=== PATIENT | female | born 1955 | race Caucasian/White ===

== ENCOUNTER → 2019-07-04 08:49 | Outpatient (BNVA) | payer MEDICAID, SELFPAY | PROVIDERS: Family Provider Family Medicine; PCP Family Medicine; Visit Provider Otolaryngology | DX: H91.90 Unspecified hearing loss, unspecified ear (principal); H93.19 Tinnitus, unspecified ear | CPT/HCPCS: 99213; 99214 ==

== ENCOUNTER → 2019-07-12 08:40 | Outpatient (BNVA) | payer MEDICAID, SELFPAY | PROVIDERS: Family Provider Family Medicine; PCP Family Medicine; Visit Provider Specialist | DX: G43.711 Chronic migraine without aura, intractable, with status migrainosus (principal) | CPT/HCPCS: 64615; J0585 ==

== ENCOUNTER → 2019-10-18 08:14 | Outpatient (BNVA) | payer MEDICAID, SELFPAY | PROVIDERS: Family Provider Family Medicine; PCP Family Medicine; Visit Provider Specialist | DX: G43.711 Chronic migraine without aura, intractable, with status migrainosus (principal) | CPT/HCPCS: 64615; J0585 ==

== ENCOUNTER 2019-11-08 09:16 | Outpatient (CLI) | payer MEDICAID, SELFPAY ==
--- NOTE | 2019-11-08 09:34 | MM_ITS ---
WS: [id number] BILATERAL DIGITAL DIAGNOSTIC MAMMOGRAM MAMMOGRAPHY WITH CAD CLINICAL INFORMATION: HX OF BREAST CA LEFT BREAST RADIATION. HISTORY OF MASTITIS WITH 6 NODES REMOVED . COMPARISON: November 06, 2018 TECHNIQUE: Bilateral CC, MLO, and ML views. FINDINGS: Scattered fibroglandular densities bilaterally. No suspicious focal mass, asymmetry, calcifications, or architectural distortion. No evidence of marlon gnancy. Benign punctate calcifications right breast. Postoperative changes with volume loss in the up per outer left breast. Coarse calcification along the axillary tail unchanged. MM/[id number] IMPRESSION: BI-RADS: 2-Benign FOLLOW UP: 1 Year Follow-up Recommend return to annual diagnostic mammography.
== END 2019-11-08 09:17 | disposition home or self-care (01) ==
LOC: RADSHAW 09:19
PROVIDERS: PCP Family Medicine; Visit Provider Internal Medicine Medical Oncology
DX: Z85.3 Personal history of malignant neoplasm of breast (principal)
CPT/HCPCS: 77066

== ENCOUNTER 2019-11-22 09:07 | Outpatient (CLI) | payer MEDICAID, SELFPAY ==
--- NOTE | 2019-11-23 06:43 | ONC FU_ITS ---
Dr. Coles Patient Follow-Up Note Patient: Phuong Khan Unit #: [id number]: 1955 Dicatated By: Jack Coles M.D.Date of Visit:November 22, 2019 Onc Med Follow-up/Prog Note Chief Complaint: Breast cancer. History of Present Illness: This is a 64 year-old woman with grade 1 infiltrating ductal carcinoma of the left breast, stage IA (T1c, N0, M0), ER/GA positive and HER-2/vanessa negative. She palpated a left breast nodule about 1 week prior to presentation. On 08/01/2012 her left breast mammogram showed a 14 mm lesion at 2 o'clock position, corresponding to 2.7 cm lesion on ultrasound. On 09/01/2012 she underwent an excisional biopsy. Her pathology showed 1.6 cm grade 1 multifocal infiltrating ductal carcinoma with a significant component of DCIS. Anterior margins were at 5 mm from invasive focus. DCIS was present within 5 mm of posterior margins. Prognostic markers revealed ER 94%, GA 95%, HER-2/vanessa was without over expression or over amplification, however no quantification was provided in the report. On 09/14/2012 she underwent a low axillary dissection, that showed 6 uninvolved lymph nodes. Her Oncotype DX score returned at 9, low risk, corresponding to a 6% chance of distant recurrence following completion of her hormonal treatment. Adjuvant chemotherapy was not recommended. She was referred for radiation therapy. Unfortunately, her treatment was delayed due to multiple complications. She developed postoperative mastitis, followed by by shingles flare, and staph infection of her left breast. She eventually recovered and underwent a 59.4 Gy of adjuvant radiation treatment, completed on 01/17/2013. Adjuvant hormonal therapy with anastrozole began in January 2013. The DEXA scan on 11/04/12 showed osteopenia with a T score of -1.3, treated with calcium and vitamin D supplementation. Bone scan on 05/18/13 was negative. Repeat DEXA scan on 11/07/2013 showed some improvement in osteopenia, T score -1.1 in lumbar spine. Her medical history includes a CVA in 2010, leaving her with a residual memory problems and difficulty with concentration, but no focal neurological deficits. Her other medical illnesses include hypertension, hyperlipidemia, GERD, and chronic migraine. She also has a history of SVT, and she has some chronic anxiety. She is a nonsmoker. INTERIM HISTORY: A repeat DEXA scan on 04/05/2017 showed osteopenia with T score in the lumbar spine of -2.0 compared to -1.1 in October 2013. She began on Prolia in April 2017. She continued adjuvant hormonal therapy with anastrozole 1 mg daily. As of her follow-up visit in April 2018 she opted to stop the anastrozole, as she had completed 5 years of adjuvant hormonal therapy. She is seen for a scheduled visit. She has been feeling good generally. Her energy has been good, and she has normal activity. Appetite also is good. Her weight is down 5-6 pounds. She does not have fever, night sweats, or hot flashes. ECOG score 0. She has no shortness of breath, cough, or chest pain. She has no GI or complaints. She has no significant joint or bone pain. She still has migraine headaches occasionally. They are pretty well managed with Botox. She has no focal neurologic symptoms. Medications: ALPRAZolam 1 (1 mg) Tablet Oral daily PRN, Aspirin 1 (325 mg) Tablet Oral daily, Atenolol 1 (25 mg) Tablet Oral daily, Botox Injection, Calcium 600+D 1 (1200-800 mg - Units) Tablet Oral b.i.d., Fish Oil Capsule Oral daily, PriLOSEC 1 (20 mg) Pack Oral daily, Spironolactone 1 (25 mg) Tablet Oral daily, Vitamin B12 Tablet Oral Allergies: hydrocodone and Morphine Sulfate. Review of Systems: Constitutional - She is generally feeling good. Her energy is good and she mostly has normal activity. Her appetite is good and weight is stable. No fever, chills, hot flashes, or night sweats. ECOG score is 0, ENMT - She is having some sinus drainage. No mouth sores. No sore throat or difficulty swallowing, Hematologic/Lymphatic - No abnormal bruising or bleeding, Respiratory - No shortness of breath. No cough. No pleuritic pain or hemoptysis, Cardiovascular - No angina pain. No palpitations, Gastrointestinal - No nausea or vomiting. Her heartburn is well controlled with Prilosec. No diarrhea or constipation. No blood in the stool or black stools, Genitourinary (F) - No dysuria or hematuria. No urinary frequency. No urgency or incontinence, Musculoskeletal - No joint or bone pain, Integumentary - No skin complications, Neurologic - She has chronic migraines that are managed with Botox. She has occasional dizziness. No numbness/paresthesias or other focal neurologic symptoms, Psychiatric - No anxiety or depression. No insomnia. Vital Signs: Performed on November 22, 2019 09:18 Height - 64.00 in Weight - 163.8 lbs (LOW) BSA - 1.80 sq.m BMI - 28.12 Temperature - 98.2 F (LOW) Pulse - 62 /min Respiration - 18 /min BP - 139/72 mm(hg) O2 Sat - 97 % Pain - 0 Physical Examination: Constitutional - She looks good generally, Eyes - Sclerae nonicteric. Conjunctivae clear, ENMT - No lesions noted in the oral cavity, Hematologic/Lymphatic - No cervical or clavicular adenopathy, Respiratory - Lungs are clear with good air movement bilaterally, Cardiovascular - Heart rhythm is regular. There is no murmur, gallop, or rub noted, Breasts - There are no breast masses noted. There is no axillary adenopathy, Abdomen - Soft. Liver and spleen are not enlarged. There is no abdominal mass or ascites noted and there is no inguinal adenopathy, Extremities - No edema. Dorsalis pedis pulses are palpable bilaterally, Neurologic - No focal neurologic deficits noted. Impression: 1. Patient with grade 1 infiltrating ductal carcinoma of the left breast, stage IA (T1c, N0, M0), ER/GA positive and HER-2/vanessa negative. She was low risk by Oncotype DX, recurrence score 9. 2. She underwent excisional biopsy on 09/01/2012 followed by low axillary dissection on 09/14/2012. 3. She completed radiation to the left breast on 01/17/2013 20 total dose of 5940 cGy. 4. She began adjuvant hormonal therapy with anastozole 1 mg daily in January 2013. Her other medical illnesses include: 5. Hypertension. 6. Hyperlipidemia. 7. GERD. 8. Chronic migraine. 9. She suffered a stroke in 2010 with residual cognitive dysfunction but no neurologic deficit. 10. She has a history of SVT. 11. She has some chronic anxiety. During followup there was a decline in her bone density, and in April 2017 she did start treatment with Prolia. As of her followup visit in April 2018 she opted to stop the anastrozole, as she had completed 5 years of adjuvant hormonal therapy. She has since then followed on observation/expectant management. She is doing very well clinically with no evidence of recurrence of the breast cancer. Plan: She remains on observation/expectant management. She will continue her regular follow-up with Dr. Elizondo. She will be due for her yearly diagnostic mammograms in June. I will see her again in one year. Signed By: Jack Coles M.D. <<Signature on File>>
== END 2019-11-22 09:08 | disposition home or self-care (01) ==
LOC: ONCMED 09:09
PROVIDERS: PCP Family Medicine; Visit Provider Internal Medicine Medical Oncology
DX: Z08 Encounter for follow-up examination after completed treatment for malignant neoplasm (principal); Z85.3 Personal history of malignant neoplasm of breast; Z92.23 Personal history of estrogen therapy; I10 Essential (primary) hypertension; E78.5 Hyperlipidemia, unspecified; K21.9 Gastro-esophageal reflux disease without esophagitis; G43.709 Chronic migraine without aura, not intractable, without status migrainosus; I69.319 Unspecified symptoms and signs involving cognitive functions following cerebral infarction; F41.9 Anxiety disorder, unspecified; Z86.79 Personal history of other diseases of the circulatory system
CPT/HCPCS: G0463

== ENCOUNTER 2019-11-26 15:52 | Outpatient (CLI) | payer MEDICAID, SELFPAY ==
--- NOTE | 2019-11-26 15:57 | XR_ITS ---
WS: [id number] DEXA (DUAL ENERGY X-RAY ABSORPTIOMETRY) Bone mineral density was performed using a [employer] machine. HISTORY: POST MENOPAUSAL COMPARISON: 04/05/2017 Lumbar spine BMD (L1-L4): 0.954 g/cm2 T score: -1.9 Z score: -0.6 Total hip BMD: Left: 0.896 g/cm2. T score: -0.9 Z score: 0.1 Right: 0.877 g/cm2. T score: -1.0 Z score: -0.1 10 year probability of a major osteoporotic fracture is 18%. Compared to the prior study from 04/05/2017. Lumbar spine bone mineral density has increased by 2.0%. Bilateral hips bone mineral density has decreased by 4.3%. XR/XR DEXA axial skeleton* [id number] IMPRESSION: OSTEOPENIA based upon the WHO classification for females. Significant increase in bone mineral density within the lumbar spine but signif icant decrease of bone mineral density involving the hips. Changes since 2016.
== END 2019-11-26 15:53 | disposition home or self-care (01) ==
LOC: RADWPI 15:55
PROVIDERS: PCP Family Medicine; Visit Provider Family Medicine
DX: Z78.0 Asymptomatic menopausal state (principal); M85.89 Other specified disorders of bone density and structure, multiple sites
CPT/HCPCS: 77080

== ENCOUNTER → 2020-01-10 08:05 | Outpatient (BNVA) | payer MEDICAID, SELFPAY | PROVIDERS: Family Provider Family Medicine; PCP Family Medicine; Visit Provider Specialist | DX: G43.711 Chronic migraine without aura, intractable, with status migrainosus (principal); F41.8 Other specified anxiety disorders | CPT/HCPCS: 64615; 99213; J0585 ==

== ENCOUNTER → 2020-04-03 07:56 | Outpatient (BNVA) | payer MEDICAID, SELFPAY | PROVIDERS: Family Provider Family Medicine; PCP Family Medicine; Visit Provider Specialist | DX: G43.711 Chronic migraine without aura, intractable, with status migrainosus (principal) | CPT/HCPCS: 64615; J0585 ==

== ENCOUNTER → 2020-07-03 08:01 | Outpatient (BNVA) | payer MEDICAID, SELFPAY | PROVIDERS: Family Provider Family Medicine; PCP Family Medicine; Visit Provider Specialist | DX: G43.711 Chronic migraine without aura, intractable, with status migrainosus (principal) | CPT/HCPCS: 64615; J0585 ==

== ENCOUNTER → 2020-09-25 08:07 | Outpatient (BNVA) | payer MEDICAID, SELFPAY | PROVIDERS: Family Provider Family Medicine; PCP Family Medicine; Visit Provider Specialist | DX: G43.709 Chronic migraine without aura, not intractable, without status migrainosus (principal) | CPT/HCPCS: 64615; J0585 ==

== ENCOUNTER 2020-11-10 10:35 | Outpatient (CLI) | payer MEDICAID, SELFPAY ==
--- NOTE | 2020-11-10 10:39 | MM_ITS ---
WS: [id number] BILATERAL DIAGNOSTIC DIGITAL MAMMOGRAM WITH CAD HISTORY: HX OF BREAST CA COMPARISON: 11/08/2019 and 11/06/2018 Bilateral CC and MLO views submitted. Computer aided detection analyzed. Breast composition: There are scattered areas of fibroglandular density. No suspicious masses, microc alcifications or architectural distortion. Loss in the LEFT breast from prior surgery. Dystrophic calcification in the superior LEFT breast is s table. Benign calcifications in the RIGHT breast. No suspicious findings or change. MM/[id number] IMPRESSION: BI-RADS: 2-Benign FOLLOW UP: 1 Year Follow-up
== END 2020-11-10 10:36 | disposition home or self-care (01) ==
PROVIDERS: Family Provider Family Medicine; PCP Family Medicine; Visit Provider Internal Medicine Medical Oncology
DX: Z85.3 Personal history of malignant neoplasm of breast (principal)
CPT/HCPCS: 77066

== ENCOUNTER → 2020-12-18 07:57 | Outpatient (BNVA) | payer MEDICAID, SELFPAY | PROVIDERS: Family Provider Family Medicine; PCP Family Medicine; Visit Provider Specialist | DX: G43.709 Chronic migraine without aura, not intractable, without status migrainosus (principal) | CPT/HCPCS: 64615; J0585 ==

== ENCOUNTER → 2021-04-02 08:07 | Outpatient (BNVA) | payer MEDICARE, MEDICAID, SELFPAY | PROVIDERS: Family Provider Family Medicine; PCP Family Medicine; Visit Provider Specialist | DX: G43.711 Chronic migraine without aura, intractable, with status migrainosus (principal) | CPT/HCPCS: 64615; J0585 ==

== ENCOUNTER → 2021-07-02 08:01 | Outpatient (BNVA) | payer MEDICARE, MEDICAID, SELFPAY | PROVIDERS: Family Provider Family Medicine; PCP Family Medicine; Visit Provider Specialist | DX: G43.711 Chronic migraine without aura, intractable, with status migrainosus (principal) | CPT/HCPCS: 64615; J0585 ==

== ENCOUNTER → 2021-09-24 08:17 | Outpatient (BNVA) | payer MEDICARE, SELFPAY | PROVIDERS: Family Provider Family Medicine; PCP Family Medicine; Visit Provider Specialist | DX: G43.711 Chronic migraine without aura, intractable, with status migrainosus (principal) | CPT/HCPCS: 64615; J0585 ==

== ENCOUNTER 2021-11-30 09:20 | Outpatient (CLI) | payer MEDICARE, MEDICAID, SELFPAY ==
--- NOTE | 2021-11-30 09:31 | MM_ITS ---
WS: [id number] VIEWS: MLO, CC, and ML views both breasts. 3D digital tomosynthesis is also included in this exam. Comparison made with prior exam of 10/17/2015, 10/19/2016, 11/06/2018, 11/10/2020.. Findings: There was no sign of mass, architectural distortion or suspicious calcification in either breast. Sta ble appearing architectural distortion and dystrophic calcification in the left breast. Fatty MM/[place] [id number] Impression: BI-RADS: 2-Benign FOLLOW-UP: 1 Year Follow-up This mammogram was also analyzed by the Computer Aided Detection System R2 Imag e [employer] Functional Analyst.
== END 2021-11-30 09:21 | disposition home or self-care (01) ==
PROVIDERS: Family Provider Family Medicine; PCP Family Medicine; Visit Provider Internal Medicine Medical Oncology
DX: Z85.3 Personal history of malignant neoplasm of breast (principal)
CPT/HCPCS: 77062

== ENCOUNTER → 2021-12-17 08:07 | Outpatient (BNVA) | payer MEDICARE, SELFPAY | PROVIDERS: Family Provider Family Medicine; PCP Family Medicine; Visit Provider Specialist | DX: G43.711 Chronic migraine without aura, intractable, with status migrainosus (principal) | CPT/HCPCS: 64615; J0585 ==

== ENCOUNTER 2022-01-14 14:05 | Outpatient (CLI) | payer MEDICARE, SELFPAY ==
--- NOTE | 2022-01-14 14:27 | XR_ITS ---
WS: [id number] SCREENING DEXA SCAN [employer] CLINICAL INFORMATION: POSTMENOPAUSAL COMPARISON: November 26, 2019 FINDINGS: The L1-L4 bone mineral density measures 1.013 g/cm2. This corresponds to a T score score of -1.4 and Z score of -0.4. Left femoral neck bone mineral density measures 0.938 g/cm2. This corresponds to a T score of -0.6 an d Z score of 0.3. Right femoral neck bone mineral density measures 0.924 g/cm2. This corresponds to a T score -0.7of an d Z score of 0.2. Mean femoral neck bone mineral density measures 0.931 g/cm2. This corresponds to a T score of -0.6 an d Z score of 0.2. XR/XR DEXA axial skeleton* [id number] IMPRESSION: Osteopenia in the lumbar spine. Normal bone mineral density in the femoral neck s. Patient's FRAX calculated 10 year probability for major osteoporotic fracture i s 15.6 % and osteoporotic hip fracture is 1.7%.
== END 2022-01-14 14:06 | disposition home or self-care (01) ==
LOC: RAD 14:06
PROVIDERS: PCP Family Medicine; Visit Provider Family Medicine
DX: Z78.0 Asymptomatic menopausal state (principal); M85.88 Other specified disorders of bone density and structure, other site
CPT/HCPCS: 77080

== ENCOUNTER → 2022-03-11 07:57 | Outpatient (BNVA) | payer MEDICARE, SELFPAY | PROVIDERS: PCP Family Medicine; Visit Provider Specialist | DX: G43.711 Chronic migraine without aura, intractable, with status migrainosus (principal) | CPT/HCPCS: 64615; J0585 ==

== ENCOUNTER → 2022-06-03 08:00 | Outpatient (BNVA) | payer MEDICARE, MEDICAID, SELFPAY | PROVIDERS: PCP Family Medicine; Visit Provider Specialist | DX: G43.711 Chronic migraine without aura, intractable, with status migrainosus (principal) | CPT/HCPCS: 64615; 95911; J0585 ==

== ENCOUNTER → 2022-08-26 08:00 | Outpatient (BNVA) | payer MEDICARE, MEDICAID, SELFPAY | PROVIDERS: PCP Family Medicine; Visit Provider Specialist | DX: G43.711 Chronic migraine without aura, intractable, with status migrainosus (principal) | CPT/HCPCS: 64615; J0585 ==

== ENCOUNTER → 2022-12-23 14:33 | Outpatient (BNVA) | payer MEDICARE, MEDICAID, SELFPAY | PROVIDERS: PCP Family Medicine; Visit Provider Specialist | DX: G43.711 Chronic migraine without aura, intractable, with status migrainosus (principal) | CPT/HCPCS: 64615; J0585 ==

== ENCOUNTER 2023-02-10 15:08 | Outpatient (CLI) | payer MEDICARE, MEDICAID, SELFPAY ==
--- NOTE | 2023-02-10 15:17 | USCV_ITS ---
Phuong Khan Age: 67 Gender: F : 1955 Exam Date: 02/10/2023 15:45 Ordering Phys: Shivam Elizondo MD Technologist: Fredrick Heller Exam Location: [facility] [place] Indication: hx of cva BP: 120 / 70 HR: 65 Rhythm: Sinus Technical Quality: Adequate MEASUREMENTS (Male / Female) Normal Values 2D ECHO LV Diastolic Diameter PLAX 4.4 cm 4.2 - 5.9 / 3.9 - 5.3 cm LV Systolic Diameter PLAX 2.5 cm IVS Diastolic Thickness 1.1 cm 0.6 - 1.0 / 0.6 - 0.9 cm IVS Systolic Thickness 1.6 cm LVPW Diastolic Thickness 1.1 cm 0.6 - 1.0 / 0.6 - 0.9 cm LVPW Systolic Thickness 1.3 cm LVOT Diameter 2.0 cm LV Ejection Fraction 2D Teich 74.5 % LV Ejection Fraction MOD 2C 74.2 % LV Ejection Fraction 2C AL 74.3 % LA Diameter 3.8 cm IVC Diameter 1.3 cm DOPPLER AV Peak Velocity 135.0 cm/s LVOT Peak Velocity 111.0 cm/s AV Area Cont Eq vti 2.3 cm squared AV Area Cont Eq pk 2.5 cm squared MV Area PHT 5.0 cm squared Mitral E to A Ratio 1.0 MV E' Velocity 45.0 cm/s Mitral E to MV E' Ratio 9.6 Mitral E to LV E' Lateral Ratio 7.6 Mitral E to LV E' Septal Ratio 13.1 TR Peak Velocity 113.7 cm/s TR Peak Gradient 5.2 mmHg TV Peak E Velocity 85.0 cm/s Right Atrial Pressure 3.0 mmHg Pulmonary Artery Systolic Pressu 8.2 mmHg RV Acceleration Time 0.2 s FINDINGS Left Ventricle Left ventricle is normal in size. LV systolic function is normal with EF of 55 to 60%. No regional wall motion abnormalities are seen. Right Ventricle Normal in size and function Right Atrium Normal in size Left Atrium Normal in size Mitral Valve Structurally normal mitral valve. Mild mitral regurgitation Aortic Valve Structurally normal aortic valve. No significant stenosis. Mild aortic regurgitation Tricuspid Valve Trace tricuspid regurgitation. Insufficient TR jet to calculate RVSP. Pulmonic Valve Not well visualized Pericardium Normal Aorta Normal in size IVC Appears to be normal CONCLUSIONS LV systolic function is normal with EF 55 to 60%. Mild mitral regurgitation Mild aortic regurgitation Trace tricuspid regurgitation Rangel Linder MD (Electronically Signed) Final Date: 10 February 2023 17:39 S
--- NOTE | 2023-02-10 15:45 | CTR_ITS ---
PROCEDURE INFORMATION: Exam: CTA Chest With Contrast Exam date and time: 02/10/2023 4:12 PM Age: 67 years old Clinical indication: Patient HX: Elevated d- dimer, shortness of breath, fatigue, covid in jun 17; Additional info: Elevated d-dimer TECHNIQUE: Imaging protocol: Computed tomographic angiography of the chest with contrast. Exam focused on the arteries. 3D rendering (Not supervised by radiologist): MIP and/or 3D reconstructed images were created by the technologist. Radiation optimization: All CT scans at this facility use at least one of these dose optimization techniques: automated exposure control; mA and/or kV adjustment per patient size (includes targeted exams where dose is matched to clinical indication); or iterative reconstruction. Contrast material: OMNIPAQUE 350; Contrast volume: 95 ml; Contrast route: INTRAVENOUS (IV); REPORTING DATA: Count of CT and Cardiac NM exams in prior 12 months: This patient has received 0 known CTs and 0 known cardiac nuclear medicine studies in the 12 months prior to the current study. COMPARISON: CR XR chest 2V* [id number] 02/09/2023 12:25 PM RADIATION DOSE METRICS: Total DLP (mGy-cm): 385.48 FINDINGS: Pulmonary arteries: Normal. No pulmonary emboli. Aorta: Ascending thoracic aorta dilated to 3.4 cm. Lungs: Bilateral dependent atelectasis. Pleural spaces: Unremarkable. No pneumothorax. No pleural effusion. Heart: Cardiomegaly. Coronary arteries: Coronary artery atherosclerotic calcifications. Lymph nodes: Scattered enlarged mediastinal lymph nodes measuring up to 14 mm, nonspecific. Liver: Hepatic steatosis. Bones/joints: Unremarkable. No acute fracture. Soft tissues: Unremarkable. CT/CT angio chest PE protcl [id number] IMPRESSION: 1. Negative for pulmonary embolus. 2. Ascending thoracic aorta dilated to 3.4 cm. 3. Coronary artery atherosclerotic calcifications. 4. Cardiomegaly. 5. Scattered enlarged mediastinal lymph nodes measuring up to 14 mm, nonspecific. 6. Hepatic steatosis. 7. Bilateral dependent atelectasis.
[2023-02-10] MEDS: iohexol 350 mg/mL 500 mL Btl (per mL) IV (16:20)
== END 2023-02-10 15:09 | disposition home or self-care (01) ==
LOC: RAD 15:11
PROVIDERS: PCP Family Medicine; Visit Provider Family Medicine
DX: R06.01 Orthopnea (principal); R79.1 Abnormal coagulation profile; R53.83 Other fatigue; Z86.16 Personal history of COVID-19; I77.810 Thoracic aortic ectasia; I25.10 Atherosclerotic heart disease of native coronary artery without angina pectoris; R59.0 Localized enlarged lymph nodes; K76.0 Fatty (change of) liver, not elsewhere classified; J98.11 Atelectasis
CPT/HCPCS: 71275; 93306; Q9967

== ENCOUNTER 2023-02-23 12:59 | Oncology outpatient (recurring) (ONCR) | payer MEDICARE, MEDICAID, SELFPAY | END 2023-02-24 23:59 | disposition home or self-care (01) | PROVIDERS: PCP Family Medicine; Visit Provider Internal Medicine Medical Oncology | DX: Z85.3 Personal history of malignant neoplasm of breast (principal); J44.9 Chronic obstructive pulmonary disease, unspecified; R59.0 Localized enlarged lymph nodes | CPT/HCPCS: 99204 ==

== ENCOUNTER 2023-02-24 14:01 | Outpatient (CLI) | payer MEDICARE, MEDICAID, SELFPAY ==
[2023-02-24 14:28] VITALS: PULSE 60; RESP 18; O2SAT 99
[2023-02-24 14:32] VITALS: PULSE 65
[2023-02-24] MEDS: albuterol 2.5 mg/3 mL Neb INHALATION (14:32)
== END 2023-02-24 14:02 | disposition home or self-care (01) ==
PROVIDERS: PCP Family Medicine; Visit Provider Family Medicine
DX: R06.09 Other forms of dyspnea (principal)
CPT/HCPCS: 94060; 94726; 94729

== ENCOUNTER 2023-03-08 12:10 | Outpatient (CLI) | payer MEDICARE, MEDICAID, SELFPAY ==
--- NOTE | 2023-03-08 12:45 | MM_ITS ---
WS: [id number] BILATERAL 3D TOMOSYNTHESIS DIGITAL DIAGNOSTIC MAMMOGRAPHY WITH CAD CLINICAL INFORMATION: Follow up HISTORY: Prior LEFT lumpectomy COMPARISON: 11/30/2021 TECHNIQUE: Bilateral CC, MLO, and ML views. FINDINGS: Scattered fibroglandular densities bilaterally. Postoperative changes LEFT lumpectomy with volume los s. Treatment related changes LEFT breast. Parenchymal scarring LEFT breast with skin thickening. A fe w incidental punctate and lucent centered calcifications. Vascular calcification. No suspicious focal mass, asymmetry, calcifications, or architectural distortion. No evidence of marlon gnancy. IMPRESSION: MM/[place] [id number] BI-RADS: 2-Benign FOLLOW UP: 1 Year Follow-up Recommend return to annual diagnostic mammography.
== END 2023-03-08 12:11 | disposition home or self-care (01) ==
LOC: RAD 12:12
PROVIDERS: PCP Family Medicine; Visit Provider Internal Medicine Medical Oncology
DX: Z85.3 Personal history of malignant neoplasm of breast (principal)
CPT/HCPCS: 77062; G0279

== ENCOUNTER 2023-03-09 08:32 | Outpatient (CLI) | payer MEDICARE, MEDICAID, SELFPAY ==
--- NOTE | 2023-03-09 08:45 | NM_ITS ---
WS: [id number] NUCLEAR MEDICINE BONE SCAN Radiopharmaceutical: 25.3 Tc-99m MDP mCi IV Injection site: Antecubital Postinjection imaging delay: 1 hr CLINICAL INFORMATION: follow up COMPARISON: Bone scan 2012 FINDINGS: Bone lesions: There are no osseous lesions suspicious for metastatic disease. Soft tissue contours: Normal. Kidneys: Normal. Other findings: Degenerative type uptake involving both AC joints and both knees. IMPRESSION: No evidence of osseous metastatic disease.
== END 2023-03-09 08:33 | disposition home or self-care (01) ==
LOC: RAD 08:33
PROVIDERS: PCP Family Medicine; Visit Provider Internal Medicine Medical Oncology
DX: Z85.3 Personal history of malignant neoplasm of breast (principal)
CPT/HCPCS: 78306; A9561

== ENCOUNTER 2023-03-14 13:53 | Outpatient (CLI) | payer MEDICARE, MEDICAID, SELFPAY ==
[2023-03-14] MEDS: iohexol 350 mg/mL 500 mL Btl (per mL) PO (15:15)
[2023-03-14] MEDS: iohexol 350 mg/mL 500 mL Btl (per mL) IV (15:28)
--- NOTE | 2023-03-14 15:30 | CT_ITS ---
WS: [id number] CT ABDOMEN AND PELVIS WITH CONTRAST HISTORY: Follow-up breast cancer. TECHNIQUE: Imaging performed of the abdomen and pelvis with IV contrast. Single phase imaging of the abdomen. Coronal and sagittal reformats are submitted. All CT scans at [facility] use at [facility] [facility] one of these dose optimization techniques: automated exposure control; mA and/or kV adjustment per patient size (includes targeted exams where dose is matched to clinical indication); or iterative re construction. IV CONTRAST: Omnipaque 350; 100 mL IV. Oral contrast: Yes. DLP: 627.10 mGy.cm COMPARISON: None available. Lower thorax: Benign granuloma at the lung bases and dependent changes. Heart is normal size. Moderat e size hiatal hernia. There is oral contrast within the hiatal hernia. Liver/biliary system: Normal size with no intrahepatic dilatation. Gallbladder: Normal. No gallstones or wall thickening. No pericholecystic fluid. Pancreas: Normal size pancreas and pancreatic duct. No adjacent inflammation. Spleen: Normal size spleen. No mass or infarct. Adrenal glands: Normal. Right kidney: Normal. Left kidney: Normal. Aorta: Mild atherosclerosis with no aneurysm. Lymphadenopathy: None. Free fluid: None. GI tract: Marked distention of the stomach with food products. No small bowel obstruction. Mild diffu se constipation. No obstruction. Normal appendix. Abdominal wall: Fat containing umbilical hernia. Pelvis: No free fluid or adenopathy within the pelvis. Normal appearance of the uterus and ovaries by CT. Bones: No evidence of destructive bone lesions. Numerous Schmorl's nodes defects noted in the thoraco lumbar region. IMPRESSION: 1. No metastatic disease within the abdomen or pelvis identified. 2. No ascites. 3. Small hiatal hernia. 4. No GI tract obstruction.
== END 2023-03-14 13:54 | disposition home or self-care (01) ==
PROVIDERS: PCP Family Medicine; Visit Provider Internal Medicine Medical Oncology
DX: Z85.3 Personal history of malignant neoplasm of breast (principal); K44.9 Diaphragmatic hernia without obstruction or gangrene
CPT/HCPCS: 74177; Q9967

== ENCOUNTER 2023-03-16 15:08 | Oncology outpatient (recurring) (ONCR) | payer MEDICARE, MEDICAID, SELFPAY | END 2023-03-26 23:59 | disposition home or self-care (01) | LOC: ONCMED 15:08 | PROVIDERS: PCP Family Medicine; Visit Provider Internal Medicine Medical Oncology | DX: R59.0 Localized enlarged lymph nodes (principal); Z85.3 Personal history of malignant neoplasm of breast; R06.00 Dyspnea, unspecified; K44.9 Diaphragmatic hernia without obstruction or gangrene | CPT/HCPCS: 99215 ==

== ENCOUNTER → 2023-03-24 10:27 | Outpatient (BNVA) | payer MEDICARE, MEDICAID, SELFPAY | PROVIDERS: PCP Family Medicine; Visit Provider Specialist | DX: G43.711 Chronic migraine without aura, intractable, with status migrainosus (principal) | CPT/HCPCS: 64615; J0585 ==

== ENCOUNTER → 2023-06-06 10:13 | Outpatient (BNVA) | payer MEDICARE, MEDICAID, SELFPAY | PROVIDERS: PCP Family Medicine; Visit Provider Internal Medicine Pulmonary Disease | DX: R59.0 Localized enlarged lymph nodes (principal); J82.83 Eosinophilic asthma; R06.02 Shortness of breath; Z87.891 Personal history of nicotine dependence | CPT/HCPCS: 36415; 82785; 85025; 86003; 99204 ==

== ENCOUNTER → 2023-06-30 10:30 | Outpatient (BNVA) | payer MEDICARE, MEDICAID, SELFPAY | PROVIDERS: PCP Family Medicine; Visit Provider Specialist | DX: G43.711 Chronic migraine without aura, intractable, with status migrainosus (principal) | CPT/HCPCS: 64615; J0585 ==

== ENCOUNTER → 2023-07-03 10:22 | Outpatient (BNVA) | payer MEDICARE, MEDICAID, SELFPAY | PROVIDERS: PCP Family Medicine; Visit Provider Emergency Medicine | DX: R50.9 Fever, unspecified (principal); J06.9 Acute upper respiratory infection, unspecified | CPT/HCPCS: 87400 ==

== ENCOUNTER 2023-09-02 15:35 | Emergency (ER) | payer MEDICARE, MEDICAID, SELFPAY ==
[2023-09-02 15:37] VITALS: BP 148/94; PULSE 68; RESP 14; TEMP 36.6; O2SAT 98
--- NOTE | 2023-09-02 15:52 | CTR_ITS ---
PROCEDURE INFORMATION: Exam: CT Head Without Contrast Exam date and time: 09/02/2023 3:58 PM Age: 68 years old Clinical indication: Stroke-like symptoms; Left upper extremity numbness/paresthesia; Additional info: Symptoms of acute stroke TECHNIQUE: Imaging protocol: Computed tomography of the head without contrast. Radiation optimization: All CT scans at this facility use at least one of these dose optimization techniques: automated exposure control; mA and/or kV adjustment per patient size (includes targeted exams where dose is matched to clinical indication); or iterative reconstruction. Other technique: STROKE PROTOCOL was implemented. COMPARISON: CT angio headneck* [id number] 12/20/2016 8:07 AM RADIATION DOSE METRICS: Total DLP (mGy-cm): 999.08 FINDINGS: Brain: No midline shsift. The ventricular system is open. The cerebral sulci are not effaced. Within the brain parenchyma, no acute intra-axial hemorrhage is identified. No definite focus of abnormal attenuation is identified. No extra-axial fluid collection is apparent. There is focally decreased attenuation in the left parietal subcortical white matter but without definite ledesma matter involvement or loss of ledesma-white differentiation. Similarly, there is decreased white matter attenuation without definite ledesma matter involvement in the left paramedian high frontal lobe. Mild relatively symmetric decreased attenuation in the periventricular bifrontal white matter suggesting sequelae of chronic small-vessel disease. Cerebral ventricles: No Hydrocephalus. Paranasal sinuses: Visualized paranasal sinuses are clear. Mastoid air cells: Visualized mastoid air cells are clear. Bones/joints: No acute osseous abnormality Identified. Soft tissues: No acute abnormality identified. Vasculature: Prominent atherosclerotic calcification noted in the left vertebral artery, the bilateral cavernous carotid arteries and the proximal right middle cerebral artery. Notes: Please note CT does not detect all acute ischemic abnormalities; if indicated, consider MRI with diffusion, or follow-up Head CT CT/CT head thrombolytic [id number] IMPRESSION: 1. No acute intracranial hemorrhage or mass effect identified. 2. Focal hypodensity in the subcortical white matter in the paramedian left frontal and in the subcortical left parietal lobe, newly demonstrated from 12/20/2016 but otherwise of undetermined age and potentially chronic. 3. Since CT angiogram of2 12/20/2016, interval development of substantial atherosclerotic calcification within the intradural segment of the left vertebral artery. Hemodynamic significance of this however can not be determined from this study. ASSESSMENT: ASPECTS ([place] Stroke Program Early CT Score) is 10.
--- NOTE | 2023-09-02 15:53 | W.ED.NEUROSD ---
HPI - Neuro Symptoms/Deficit General: Chief Complaint: Neuro Symptoms/Deficit Stated Complaint: sent over, stroke like symptoms Time Seen by Provider: 09/02/23 15:43 Source: patient Mode of arrival: ambulatory Limitations: no limitations History of Present Illness: This patient presents to our emergency department because she is concerned about stroke symptoms. She states that yesterday morning when she woke at 7 AM she noted some numbness to the left side of her mouth as well as the fingers on her left hand. She did not have any other associated symptoms such as headache, difficulty speaking, weakness, difficulty doing normal activities of daily living 1 about her day and then continued to have symptoms this morning when she awoke and went about her day and then eventually made her way to the urgent care clinic who referred her to the emergency department. She states she has had 2 small strokes in the past but was left without deficits. She does also has a history of migraine headaches and has had migraines since she is 11 years old. She states she has never been told she had complex or atypical migraines. She denies any falls. She denies any history of atrial fibrillation or arrhythmias. She states that she has some mild head pressure right now but not a regular migraine type headache. Associated symptoms: Deny chest pain, nausea, syncope, vertigo or vomiting Review of Systems Const: Denies: fever(s) Eyes: Denies: change in vision ENMT: Denies: throat pain or odynophagia Card: Denies: chest pain, palpitations, syncope or pre-syncope Resp: Denies: dyspnea, productive cough or non-productive cough GI: Denies: nausea, vomiting or diarrhea : Denies: flank pain, difficulty voiding, dysuria or urinary frequency Musc: Denies: neck pain, back pain, extremity pain or extremity swelling Skin/Breast: Denies: rash Neuro: Reports: numbness in extremities; Denies: weakness in extremities, lack of coordination, dizziness, vertigo, Slurred speech present, difficulty communicating thoughts or seizure-like activity [facility] ED PFSH: Medical History Allergic rhinitis due to allergen Severe itching Ch mgr wo [facility] w [facility] Family History Sister Cancer Other Diabetes Hypertension Stroke Denies family history of CAD (coronary artery disease) Clotting disorder Dementia Hyperlipidemia Psychiatric illness Chronic kidney disease (CKD) Suicide Anesthesia complication Bleeding disorder Family history of premature coronary artery disease Lung disease Social History Smoking and tobacco/nicotine status: former use of tobacco/nicotine Quit status (tobacco/nicotine): has quit using Year quit tobacco: 05/2022 Former quit date comment: 0.25 ppd X 3 years Second hand smoke exposure: Yes Alcohol intake: former Substance/Drug Use: never NIH stroke score NIHSS: Level Of Consciousness - 1a: 0 Level Of Consciousness Questions - 1b: Both Correct Level Of Consciousness Commands - 1c: Both Correct Best Gaze - 2: Normal Visual [place] - 3: No Visual Loss Facial Palsy - 4: Normal Motor Arm Right - 5: No Drift Motor Arm Left - 5: No Drift Motor Leg Right - 6: No Drift Motor Leg Left - 6: No Drift Limb Ataxia - 7: Absent Sensory - 8: Mild To Moderate Loss Best Language - 9: No Aphasia Dysarthia - 10: Normal Extinction And Inattention - 11: 0 Score: Total Score: 1 Physical Exam Narrative: EXAM NARRATIVE: She is alert appears to be calm and cooperative makes good eye contact her speech is goal-directed. Const: COMMON NORMALS: no acute distress, average body habitus, patient oriented x3, healthy appearing and alert GENERAL APPEARANCE: cooperative and comfortable HENMT: COMMON NORMALS: normocephalic, atraumatic, Normal nasal mucous membranes and turbinates present and moist oral mucous membranes HEAD & SCALP: normocephalic and atraumatic; no scalp tenderness and no Temporal artery tenderness present FACE & SINUS: normal facial exam and face symmetric NOSE: Normal nasal mucous membranes and turbinates present Eye: COMMON NORMALS: Equal, round and reactive pupils present, EOMs intact bilaterally and conjunctivae normal CONJUNCTIVA: Yes conjunctivae normal PUPIL: Yes Equal, round and reactive pupils present Neck/C-Spine: COMMON NORMALS: full ROM, no lymphadenopathy, supple, Thyroid normal and No carotid bruits THYROID: Thyroid normal Chest: COMMONS NORMALS: normal inspection of the chest Resp: COMMON NORMALS: normal respiratory effort, No retractions, No use of accessory muscles and clear to auscultation bilaterally EFFORT & INSPECTION: Yes able to speak in complete sentences AUSCULTATION: clear to auscultation bilaterally Cardio: COMMON NORMALS: regular rate and regular rhythm RATE: regular rate RHYTHM: regular rhythm HEART SOUNDS: Murmur heart sound present (2/) systolic GI: COMMON NORMALS: Normal to inspection, nondistended, normoactive bowel sounds present, Soft to palpation and non-tender PALPATION: Yes Soft to palpation : COMMON NORMALS: Yes no CVA tenderness BLADDER/KIDNEY EXAM: Yes no CVA tenderness Back/Pelvis: COMMON NORMALS: no CVA tenderness, thoracic and lumbar spine normal to inspection, no thoracic nor lumbar tenderness and thoraco-lumbar ROM normal Extremity: COMMON NORMALS: normal to inspection, full ROM, capillary refill normal, no calf tenderness and no pedal edema Neuro: COMMON NORMALS: patient oriented x3, moves all extremities, no focal motor deficits and gait normal SENSORIUM/ORIENTATION: Yes alert COORDINATION/BALANCE: hrosgv-ln-vsax test normal and remy-py-jhze test normal SPEECH: speech normal COORDINATION: tsgiwo-ea-[id number] test normal and tnyv-lk-hdhb test normal OTHER: She has altered sensation to touch in the lateral portion of her left hand as well as the circumoral region of her left face. Course Reevaluation(s): Reevaluation #1: Patient remains clinically stable without any new or otherwise concerning findings. She still has the left facial altered sensation in the left hand altered sensation. Time: 17:25 Consultations: Consultation #1: Discussed patient's current presentation and management with Dr. Champion consulting neurologist who made recommendations based upon our conversation. Time: 17:24 Vital Signs: Vital signs: Vital Signs Temperature 97.9 F 09/02/23 15:37 Pulse Rate 65 09/02/23 16:39 Respiratory Rate 14 09/02/23 16:39 Blood Pressure 148/94 09/02/23 15:37 Pulse Oximetry 96 09/02/23 16:39 Oxygen Delivery Me thod Room Air 09/02/23 16:39 MDM - Neuro Symptoms/Deficit Medical Decision Making Patient is a 68-year-old lady who presented to the emergency department approximately 30 hours or so after the onset of symptoms of left circumoral and left cheek altered sensation as well as left hand and finger sensation being altered. There is no other associated focal symptoms. The patient continued her usual medication and eventually made her way to the emergency department. Patient has a prior history of migraine headaches as well as allegedly small strokes without deficits. He also has hypertension and hyperlipidemia and takes medication for those conditions. Clinical examination was revealing only and that she had an NIH 1 based upon the altered sensation. There was no other focal findings on her neurologic or other clinical examination. She is not a candidate for thrombolytic therapy given her low NIH and duration from onset of symptoms however a usual evaluation for reversible causes of her symptoms was undertaken. A noncontrasted CT scan was reassuring as well as other laboratories including blood count, platelet count, sed rate etc. Patient has a nonreversible at this point small non-debilitating neurologic deficit. Whether or not this represents a complex migraine symptoms it is unclear but unlikely to be so given the duration of symptoms. Consulted with neurology who recommended increasing her statin dose as well as switching her from 325 mg of aspirin to 81 mg of aspirin plus Plavix daily. She also be referred back to her neurologist Dr. Almendarez and scheduled for a outpatient MRI. Lab Data I reviewed the patient's lab results. 09/02/23 16:39 09/02/23 16:[address] 09/02/23 15:52 IMPRESSION: 1. No acute intracranial hemorrhage or mass effect identified. 2. Focal hypodensity in the subcortical white matter in the paramedian left frontal and in the subcortical left parietal lobe, newly demonstrated from 12/20/2016 but otherwise of undetermined age and potentially chronic. 3. Since CT angiogram of2 12/20/2016, interval development of substantial atherosclerotic calcification within the intradural segment of the left vertebral artery. Hemodynamic significance of this however can not be determined from this study. ASSESSMENT: ASPECTS ([place] Stroke Program Early CT Score) is 10. Laboratory Results WBC 7.19 10^3/uL (3.29-11.43) 09/02/23 16:39 RBC 4.56 10^6/uL (3.85-5.65) 09/02/23 16:39 Hgb 13.40 g/dL (11.27-16.99) 09/02/23 16:39 Hct 39.9 % (36-47) 09/02/23 16:39 MCV 87.5 fl (85-98) 09/02/23 16:39 MCH 29.4 pg (27-33) 09/02/23 16:39 MCHC 33.6 g/dL (30-55) 09/02/23 16:39 RDW 13.5 % (12.1-15.1) 09/02/23 16:39 Plt Count 250 10^3/cmm (157-399) 09/02/23 16:39 MPV 9.7 fL (7.4-10.4) 09/02/23 16:39 Neut % (Auto) 47.5 % 09/02/23 16:39 Lymph % (Auto) 39.8 % 09/02/23 16:39 [place] % (Auto) 6.8 % 09/02/23 16:39 Eos % (Auto) 4.7 % 09/02/23 16:39 Baso % (Auto) 0.6 % 09/02/23 16:39 Neut # (Auto) 3.42 10^3/uL (1.8-7.7) 09/02/23 16:39 Lymph # (Auto) 2.9 10^3/uL (0.8-4.8) 09/02/23 16:39 [place] # (Auto) 0.5 10^3/uL (0.2-0.9) 09/02/23 16:39 Eos # (Auto) 0.3 10^3/uL (0.0-0.8) 09/02/23 16:39 Baso # (Auto) 0.0 10^3/uL (0.0-0.1) 09/02/23 16:39 Nucleated RBC % (auto) 0 % 09/02/23 16:39 Nucleated RBCs # 0.0 /100WBC 09/02/23 16:39 ESR 4 mm/hr (0-15) 09/02/23 16:39 Sodium 139 mmol/L (136-145) 09/02/23 16:39 Potassium 4.4 mmol/L (3.5-5.1) 09/02/23 16:39 Chloride 99 mmol/L (98-107) 09/02/23 16:39 Carbon Dioxide 27 mmol/L (22-29) 09/02/23 16:39 Anion Gap 17.4 (5-19) 09/02/23 16:39 BUN 18 mg/dL (8-23) 09/02/23 16:39 Creatinine 0.7 mg/dL (0.5-0.9) 09/02/23 16:39 GFR Calculation 83.5 mL/min (90-130) L 09/02/23 16:39 Glucose 102 mg/dL (65-115) 09/02/23 16:39 Calculated Osmolality 290 mOsm/kg (285-295) 09/02/23 16:39 Calcium 9.5 mg/dL (8.5-10.5) 09/02/23 16:39 Total Bilirubin 0.5 mg/dL (0.15-1.2) 09/02/23 16:39 AST 19 U/L (0-32) 09/02/23 16:39 ALT 17 U/L (0-33) 09/02/23 16:39 Alkaline Phosphatase 66 U/L (35-105) 09/02/23 16:39 Total Protein 7.5 g/dL (6.6-8.7) 09/02/23 16:39 Albumin 4.4 g/dL (3.5-5.2) 09/02/23 16:39 Globulin 3.1 g/dL (1.3-4.6) 09/02/23 16:39 All radiology interpretation(s) finalized by discharge EKG Data EKG 1: I personally reviewed and interpreted this EKG as follows: Interpretation: Contemporaneous review of resting EKG reveals normal sinus rhythm at 64 bpm. Normal intervals normal axis. No acute ST-T wave changes noted at this time. Discharge Plan Discharge Patient Disposition: Home Clinical Impression: Cerebrovascular accident Qualifiers: CVA mechanism: unspecified Qualified Code(s): I63.9 - Cerebral infarction, unspecified Condition: Stable Prescriptions: New Plavix 75 mg tablet 75 mg PO DAILY Qty: 30 0RF rosuvastatin 40 mg tablet 40 mg PO DAILY Qty: 30 0RF aspirin 81 mg capsule 81 mg PO DAILY Qty: 30 0RF Discontinued aspirin 325 mg tablet,delayed release (DR/EC) 325 mg PO DAILY rosuvastatin 10 mg tablet 10 mg PO DAILY No Action omeprazole 20 mg capsule,delayed release(DR/EC) 20 mg PO DAILY omega-3 fatty acids [Fish Oil Concentrate] 1,000 mg capsule 1,000 mg PO DAILY atenolol 25 mg tablet 25 mg PO DAILY calcium carbonate 600 mg calcium (1,500 mg) tablet 1,200 mg PO DAILY spironolactone 100 mg tablet 100 mg PO BID Botox 100 unit recon soln 155 unit SUBCUT ONCE Qty: 2 0RF Patient Comments: q 14 weeks felodipine 2.5 mg tablet extended release 24 hr 2.5 mg PO DAILY albuterol sulfate [Ventolin HFA] 90 mcg/actuation HFA aerosol inhaler 1 inh inhalation QID PRN (Reason: shortness of breath or wheezing) Qty: 8.5 4RF cholecalciferol (vitamin D3) 10 mcg (400 unit) tablet 20 mcg PO DAILY mecobalamin (vitamin B12) 1,000 mcg tablet,chewable 1,000 mcg PO DAILY Paxlovid 300 mg (150 mg x 2)-100 mg tablets,dose pack See Rx Instructions PO .COMPLEX Qty: 30 0RF Rx Instructions: take TWO 150 mg tablets of nirmatrelvir with ONE 100 mg tablet of ritonavir twice daily for 5 days PO budesonide-formoterol [Symbicort] 80-4.5 mcg/actuation HFA aerosol inhaler 2 puff inhalation BID Qty: 30.6 3RF Discharge Orders: Discharge ED (Routine); Ordered 09/02/23 Ordered By: Kai Agosto Referrals: Shivam Elizondo MD [Primary Care Provider] - Discharge Diet: Low Salt and Low Cholesterol Discharge Activity: Increase activity as tolerated Patient Instructions: Opioid Safety, Pain Management Activity Restrictions/Additional Instructions: We have made changes in your medications to reduce your aspirin to 81 mg daily and added a new medication called Plavix 75 mg daily. We also placed a request for an MRI of the brain. You will also be contacted contacted for that test as well as a follow-up appointment with Dr. Almendarez. If it anytime you have worsening symptoms such as weakness numbness headache etc. you should return to the emergency department immediately. Otherwise follow-up with your MRI and Dr. Almendarez as scheduled. Coding Level of Care Code ED Boarding House Manager for Cira Hauser
--- NOTE | 2023-09-02 16:11 | ECG_ITS ---
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 Measurements Intervals [place] Rate: 64 P: 72 [place]: 179 QRS: 38 QRSD: 87 T: 72 QT: 415 QTc: 428 Interpretive Statements SINUS RHYTHM Compared to ECG 08/13/2014 18:25:52 ST (T wave) deviation no longer present Electronically Signed On 09-02-2023 17:44:32 REEL SLITTER by Jessica Cabrera M.D. [id number]
[2023-09-02 16:39] VITALS: PULSE 65; RESP 14; O2SAT 96
[2023-09-02 16:45] LABS: Basophils % 0.6 %; Eosinophils # 0.3 10^3/uL (0.0-0.8); Eosinophils % 4.7 %; Hematocrit 39.9 % (36-47); Lymphocytes # 2.9 10^3/uL (0.8-4.8); Lymphocytes % 39.8 %; Mean Corpuscular HGB Conc 33.6 g/dL (30-55); Mean Corpuscular Hemoglobin 29.4 pg (27-33); Mean Corpuscular Volume 87.5 fl (85-98); Mean Platelet Volume 9.7 fL (7.4-10.4); Monocytes # 0.5 10^3/uL (0.2-0.9); Monocytes % 6.8 %; Neutrophils # 3.42 10^3/uL (1.8-7.7); Neutrophils % 47.5 %; Nucleated Red Blood Cells % 0 %; Platelet Count 250 10^3/cmm (157-399); Red Blood Count 4.56 10^6/uL (3.85-5.65); Red Cell Distribution Width 13.5 % (12.1-15.1); White Blood Count 7.19 10^3/uL (3.29-11.43)
[2023-09-02 16:51] LABS: Erythrocyte Sedimentation Rate 4 mm/hr (0-15)
[2023-09-02 17:06] LABS: Alanine Aminotransferase 17 U/L (0-33); Albumin Level 4.4 g/dL (3.5-5.2); Alkaline Phosphatase 66 U/L (35-105); Anion Gap 17.4 (5-19); Aspartate Amino Transferase 19 U/L (0-32); Blood Urea Nitrogen 18 mg/dL (8-23); Calcium 9.5 mg/dL (8.5-10.5); Carbon Dioxide 27 mmol/L (22-29); Chloride 99 mmol/L (98-107); Creatinine Clr Calc Pharmacy 68.5829; Globulin 3.1 g/dL (1.3-4.6); Glomerular Filtration Rate 83.5 mL/min (90-130); Glucose 102 mg/dL (65-115); Osmolality Calculated 290 mOsm/kg (285-295); Potassium 4.4 mmol/L (3.5-5.1); Sodium 139 mmol/L (136-145); Total Bilirubin 0.5 mg/dL (0.15-1.2); Total Protein 7.5 g/dL (6.6-8.7)
[2023-09-02] MEDS: clopidogrel 75 mg Tablet PO (17:53)
[2023-09-02 17:55] VITALS: BP 148/94; PULSE 65; RESP 14; TEMP 36.6; O2SAT 96
--- NOTE | 2023-09-05 07:04 | DCPLANNER ---
A message was sent to neurology on 09/05/23 at 0705.
== END 2023-09-02 17:56 | disposition home or self-care (01) ==
PROVIDERS: Emergency Provider Emergency Medicine; PCP Family Medicine
DX: I63.9 Cerebral infarction, unspecified (principal); Z87.891 Personal history of nicotine dependence
CPT/HCPCS: 36415; 70450; 80053; 85025; 85651; 93005; 99284

== ENCOUNTER → 2023-09-29 10:43 | Outpatient (BNVA) | payer MEDICARE, MEDICAID, SELFPAY | PROVIDERS: PCP Family Medicine; Visit Provider Specialist | DX: I63.9 Cerebral infarction, unspecified (principal); G43.711 Chronic migraine without aura, intractable, with status migrainosus | CPT/HCPCS: 64615; 99214; J0585 ==

== ENCOUNTER 2023-10-06 15:56 | Outpatient (CLI) | payer MEDICARE, MEDICAID, SELFPAY ==
--- NOTE | 2023-10-06 16:00 | MR_ITS ---
WS: [id number] MRI HEAD WITHOUT CONTRAST TECHNIQUE: Sagittal T1, T2 axial, T2 axial FLAIR, axial and coronal T1 images, axial susceptibility w eighted imaging, axial diffusion weighted images, and coronal T2 images were obtained. CLINICAL INFORMATION: I63.9 - Cerebral infarction, unspecified COMPARISON: MRI 10/25/2013. CT 09/02/2023 FINDINGS: No evidence of restricted diffusion to suggest acute ischemia. Ventricular system and basilar cistern s are patent. Moderate small vessel changes. Mild parenchymal volume loss. Small vessel changes progr essed compared to 2014. Parenchymal volume loss is also slightly progressed. Normal vascular flow voids at the skull base. No extra-axial fluid collections. No evidence of mass o r mass effect. Numerous tiny chronic lacunar infarcts in the cerebellum bilaterally similar in appear ance to 2014. Tiny chronic lacunar infarct in the RIGHT thalamus unchanged since 2014. Paranasal sinu ses are well aerated. Small retention cyst RIGHT maxillary sinus. Normal posterior nasopharynx. Masto id air cells are well aerated. No hemosiderin on the susceptibly weighted images. Normal optic chiasm and pituitary infundibulum. Mi ld symmetric atrophy temporal lobes and hippocampal formations. Normal cavernous sinuses and Meckel's cave. IMPRESSION: 1. No evidence of restricted diffusion to suggest acute ischemia. 2. Moderate small vessel changes with mild parenchymal volume loss. Small vessel changes and parench ymal volume loss progressed compared to 2014. 3. Numerous tiny chronic lacunar infarcts in the cerebellum bilaterally similar to 2014. 4. Tiny chronic lacunar infarct RIGHT thalamus unchanged. 5. No hemosiderin on the susceptibility weighted images. 6. No other acute findings.
== END 2023-10-06 15:57 | disposition home or self-care (01) ==
LOC: RAD 15:56
PROVIDERS: PCP Family Medicine; Visit Provider Emergency Medicine
DX: I63.9 Cerebral infarction, unspecified (principal); G43.711 Chronic migraine without aura, intractable, with status migrainosus
CPT/HCPCS: 70551

== ENCOUNTER 2023-10-14 15:02 | Outpatient (CLI) | payer MEDICARE, MEDICAID, SELFPAY ==
--- NOTE | 2023-10-14 15:30 | CT_ITS ---
WS: [id number] CTA HEAD AND NECK TECHNIQUE: Contrast enhanced CTA of the head and neck with coronal and sagittal reformatted images an d maximum intensity projection (MIP) images. NASCET criteria utilized. CLINICAL INFORMATION: I63.9 - Cerebral infarction, unspecified COMPARISON: MRI 10/06/2023 DLP: 1189.[address] scans at [facility] use at least one of these dose optimization techniques: automated e xposure control; mA and/or kV adjustment per patient size (includes targeted exams where dose is matc hed to clinical indication); or iterative reconstruction. FINDINGS: No evidence intracranial hemorrhage or mass effect. Ventricular system and basal cisterns a re patent. Cavernous carotid calcification. Retention cyst in the RIGHT maxillary sinus measuring 9 m m. Multiple small chronic infarcts in the cerebellum bilaterally. Chronic lacunar infarct RIGHT thala mus. Mild small vessel changes. Mild parenchymal volume loss. Lung apices are well aerated. Multinodular thyroid. Normal posterior nasopharynx. Paranasal sinuses a nd mastoid air cells are well aerated. Mild spondylitic changes cervical spine. RIGHT: RIGHT common carotid artery is patent. Mild atheromatous plaque RIGHT carotid bulb. No signifi cant RIGHT ICA stenosis. RIGHT ICA is patent to the skull base. Mild cavernous carotid calcification. LEFT: LEFT common carotid artery is patent. Mild atheromatous plaque LEFT carotid bulb. No significan t LEFT ICA stenosis. LEFT ICA is patent to the skull base. Mild cavernous carotid calcification. Small RIGHT vertebral artery ends in PICA. LEFT vertebral artery appears occluded at the origin uncha nged from 2017. This reconstitutes at the C5 level. Remains patent to the skull base. New intracrania l vertebral calcification with mild segmental narrowing which remains patent. Proximal basilar artery is patent. Persistent RIGHT DIRECTOR [employer]IENT SERVICES. Normal vascularity to the DIRECTOR CLIENT SERVICES territory bilaterally. Both ICAs are patent at the skull base. Mild cavernous carotid calcification. Patent anterior communi cating artery. Small A1 segments. Normal vascularity to the [place] territory. Normal vascularity to the MCA territories bilaterally. No evidence of proximal flow-limiting stenosis. Few prominent partially visualized anteromediastinal lymph nodes nonspecific but may be reactive. IMPRESSION: 1. No evidence intracranial hemorrhage or mass effect. 2. Chronic lacunar infarcts involving the cerebellum bilaterally and RIGHT thalamus as seen on the r ecent MRI. 3. No evidence of proximal flow-limiting intracranial stenosis. 4. Persistent RIGHT [employer]IENT SERVICES. 5. Tiny RIGHT vertebral artery ends in PICA unchanged. 6. 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 7. No significant cervical ICA stenosis. 8. Multinodular thyroid.
[2023-10-14] MEDS: iohexol 350 mg/mL 500 mL Btl (per mL) IV (15:34)
== END 2023-10-14 15:03 | disposition home or self-care (01) ==
LOC: RAD 15:03
PROVIDERS: PCP Family Medicine; Visit Provider Specialist
DX: I63.9 Cerebral infarction, unspecified (principal); G43.711 Chronic migraine without aura, intractable, with status migrainosus; I65.02 Occlusion and stenosis of left vertebral artery; E04.2 Nontoxic multinodular goiter
CPT/HCPCS: 70496; 70498; Q9967

== ENCOUNTER → 2023-12-07 08:00 | Outpatient (BNVA) | payer MEDICARE, SELFPAY | PROVIDERS: PCP Family Medicine; Visit Provider Internal Medicine Pulmonary Disease | DX: R59.0 Localized enlarged lymph nodes (principal); J82.83 Eosinophilic asthma; Z87.891 Personal history of nicotine dependence | CPT/HCPCS: 99214 ==

== ENCOUNTER → 2024-01-05 09:46 | Outpatient (BNVA) | payer MEDICARE, SELFPAY | PROVIDERS: PCP Family Medicine; Visit Provider Specialist | DX: G43.711 Chronic migraine without aura, intractable, with status migrainosus (principal); I63.9 Cerebral infarction, unspecified | CPT/HCPCS: 64615; 99214; J0585 ==

== ENCOUNTER 2024-03-28 08:45 | Outpatient (CLI) | payer MEDICARE, SELFPAY ==
--- NOTE | 2024-03-28 08:48 | MM_ITS ---
WS: [id number] VIEWS: MLO, CC, and ML views both breasts. 3D digital tomosynthesis is also included in this exam. Comparison made with prior exam of 04/12/2002, 03/08/2023, 11 06 201811/08/2019, 11/10/2020, 11/30/2021, 04/16/2014 10/14/2014 10/17/2015 10/19/2016.. Findings: There are scattered areas of fibroglandular density. FINDINGS postoperative changes in the upper outer quadrant of the LEFT breast. MM/MM diag BI tomosynthesis [id number] Impression: BI-RADS: 2 - Benign. FOLLOW-UP: 1 Year Follow-up This mammogram was also analyzed by the Computer Aided Detection System [employer]2 [employer] Animal [employer].
== END 2024-03-28 08:46 | disposition home or self-care (01) ==
LOC: RAD 08:45
PROVIDERS: PCP Family Medicine; Visit Provider Family Medicine
DX: Z85.3 Personal history of malignant neoplasm of breast (principal); R92.323 Mammographic fibroglandular density, bilateral breasts; Z98.890 Other specified postprocedural states
CPT/HCPCS: 77062; G0279

== ENCOUNTER → 2024-03-29 09:20 | Outpatient (BNVA) | payer MEDICARE, SELFPAY | PROVIDERS: PCP Family Medicine; Visit Provider Specialist | DX: G43.711 Chronic migraine without aura, intractable, with status migrainosus (principal) | CPT/HCPCS: 64615; J0585 ==

== ENCOUNTER → 2024-07-06 10:29 | Outpatient (BNVA) | payer MEDICARE, SELFPAY | PROVIDERS: PCP Family Medicine; Visit Provider Specialist | DX: G43.711 Chronic migraine without aura, intractable, with status migrainosus (principal) | CPT/HCPCS: 64615; J0585 ==

== ENCOUNTER → 2024-07-11 11:29 | Outpatient (BNVA) | payer MEDICARE, SELFPAY | PROVIDERS: PCP Family Medicine; Visit Provider Podiatrist Foot & Ankle Surgery | DX: M79.671 Pain in right foot (principal); M79.672 Pain in left foot; M21.611 Bunion of right foot; M21.612 Bunion of left foot; G62.9 Polyneuropathy, unspecified | CPT/HCPCS: 73630; 99203 ==

== ENCOUNTER → 2024-08-13 14:44 | Outpatient (BNVA) | payer MEDICARE, SELFPAY | PROVIDERS: PCP Family Medicine; Visit Provider Podiatrist Foot & Ankle Surgery | DX: M21.611 Bunion of right foot (principal); M21.612 Bunion of left foot; G62.9 Polyneuropathy, unspecified | CPT/HCPCS: 99213 ==

== ENCOUNTER → 2024-10-05 12:32 | Outpatient (BNVA) | payer MEDICARE, SELFPAY | PROVIDERS: PCP Family Medicine; Visit Provider Specialist | DX: G43.711 Chronic migraine without aura, intractable, with status migrainosus (principal) | CPT/HCPCS: 64615; J0585; J9999 ==

== ENCOUNTER → 2024-11-14 08:17 | Outpatient (BNVA) | payer MEDICARE, SELFPAY | PROVIDERS: PCP Family Medicine; Visit Provider Family Medicine Adult Medicine | DX: R30.0 Dysuria (principal) | CPT/HCPCS: 81000 ==

== ENCOUNTER → 2025-01-21 09:20 | Outpatient (BNVA) | payer MEDICARE, SELFPAY | PROVIDERS: PCP Family Medicine; Visit Provider Specialist | DX: G43.711 Chronic migraine without aura, intractable, with status migrainosus (principal) | CPT/HCPCS: 64615; J0585; J9999 ==

== ENCOUNTER 2025-03-18 13:16 | Outpatient (CLI) | payer MEDICARE, SELFPAY ==
--- NOTE | 2025-03-18 13:22 | US_ITS ---
WS: [email or web address] Exam: US breast LT limited* [id number] Date/Time of Exam: 03/18/2025 1:44 PM Reason For Exam: MASS OF UPPER OUTER QUADRANT OF L BREAST Regional ultrasound of the upper outer quadrant of the LEFT breast is performed at about the 1 o'clock position. Patient directed lump in this region is evaluated with ultrasound. At the 1 o'clock position there is a prominent shadowing calcification that measures 1.7 x 0.8 x 0.5 cm. This corresponds to a large mammographic calcification identified at previous surgical site. This has benign appearance. There were no suspicious soft tissue masses or nodules in this region. US/US breast LT limited* [id number] IMPRESSION: 1. Prominent calcification noted at the 1 o'clock position in the upper outer quadrant of the LEFT breast that corresponds with a large mammographic calcific ation at the site of previous lumpectomy. There were no suspicious soft tissue masses or nodules in this region. BI-RADS Category 2. Continue yearly screening mammography.
--- NOTE | 2025-03-18 13:22 | MM_ITS ---
WS: [email or web address] VIEWS: MLO, CC, and ML views of the LEFT breast only. Some compression spot images were also included.. 3D digital tomosynthesis is also included in this exam. Comparison made with prior exam of 08/01/2012, 03/07/2013, 10/13/2013, 04/16/2014, 10/14/2014, 10/17/2015, 10/19/2016, 10/21/2017, 11/06/2018, 11/08/2019, 11/10/2020, 11/30/2021, 03/08/2023, 03/28/2024.. Findings: There are scattered areas of fibroglandular density. No sign of suspicious new mass, tumor calcification or architectural distortion. Postoperative changes with volume loss seen in the upper outer quadrant of the LEFT breast. Benign-appearing postop calcifications at the surgery site are stable. Regional ultrasound of the upper outer quadrant of the LEFT breast is suggested for further work-up. MM/MM diag LT tomosynthesis [id number] Impression: BI-RADS: 0 - Incomplete: Need additional imaging evaluation. FOLLOW-UP: See Report This mammogram was also analyzed by the Computer Aided Detection System R2 Imag e Cell Pourer.
== END 2025-03-18 13:17 | disposition home or self-care (01) ==
LOC: RAD 13:17
PROVIDERS: PCP Family Medicine; Visit Provider Family Medicine
DX: N63.21 Unspecified lump in the left breast, upper outer quadrant (principal); R92.322 Mammographic fibroglandular density, left breast; R92.1 Mammographic calcification found on diagnostic imaging of breast
CPT/HCPCS: 76642; 77061; G0279

== ENCOUNTER → 2025-05-02 09:43 | Outpatient (BNVA) | payer MEDICARE, SELFPAY | PROVIDERS: PCP Family Medicine; Visit Provider Specialist | DX: G43.711 Chronic migraine without aura, intractable, with status migrainosus (principal) | CPT/HCPCS: 64615; J0585; J9999 ==